=== PATIENT | female | born 1990 | race Caucasian/White ===

== ENCOUNTER 2023-02-17 10:05 | Day surgery (SDC) | payer OTHER ==
[~2023-02-17] VITALS: Ht 149.9 cm; Wt 86.2 kg
[2023-02-17] MEDS: MIDAZOLAM 2 MG/2 ML VIAL IVP ONE (11:27)
[2023-02-17] MEDS: fentaNYL citrate 0.05 MG/ML VIAL IVP ONE (11:28)
[2023-02-17] MEDS: diphenhydrAMINE 50 MG/ML VIAL IVP ONE (11:29)
[2023-02-17] MEDS ORDERED: diphenhydrAMINE 50 MG/ML VIAL ONE (12:21)
[2023-02-17] MEDS ORDERED: fentaNYL citrate 0.05 MG/ML VIAL ONE (12:22)
[2023-02-17] MEDS ORDERED: MIDAZOLAM 2 MG/2 ML VIAL ONE (12:23)
[2023-02-17] MEDS ORDERED: MIDAZOLAM 2 MG/2 ML VIAL IVP ONE (12:45)
[2023-02-17] MEDS ORDERED: fentaNYL citrate 0.05 MG/ML VIAL IVP ONE (12:45)
[2023-02-17] MEDS ORDERED: diphenhydrAMINE 50 MG/ML VIAL IVP ONE (12:45)
== END 2023-02-17 12:38 | disposition home or self-care (01) ==
LOC: MDS 10:05 → MMU 10:05 → MDS 12:38
PROVIDERS: ATTEND Internal Medicine Gastroenterology
DX: R10.13 Epigastric pain (principal); K21.9 Gastro-esophageal reflux disease without esophagitis; E11.9 Type 2 diabetes mellitus without complications; E66.9 Obesity, unspecified; Z79.84 Long term (current) use of oral hypoglycemic drugs; Z79.899 Other long term (current) drug therapy; Z68.38 Body mass index [BMI] 38.0-38.9, adult
CPT/HCPCS: 43239; 82948; J1200; J2250; J3010